=== PATIENT | female | born 1990 | race Caucasian/White ===

== ENCOUNTER 2021-11-21 14:09 | Emergency (ER) | payer OTHER, SELFPAY ==
--- NOTE | ~2021-11-21 | XR_ITS ---
EXAM: XR ankle RT min 3V DATE: 11/21/2021 14:32 HISTORY: HYPEREXTENSION INJURY,GEN LAT/ANT PAIN . COMPARISON: None available. FINDINGS: Normal mineralization. Tiny avulsion fracture fragment at the tip of the medial malleolus. No lytic or blastic lesion. Joint spaces are maintained. No erosion or periosteal change. Likely ank le joint effusion. Soft tissues within normal limits. IMPRESSION: Acute appearing medial malleolar avulsion fracture. Reviewed, dictated and finalized at location K.
[2021-11-21 14:19] VITALS: BP 116/82; PULSE 94; RESP 16; TEMP 37.1; O2SAT 99
--- NOTE | 2021-11-21 14:29 | ED.LOWEXIN ---
HPI - Extremity Injury (Lower) General Chief Complaint: Extremity Injury, Lower Stated Complaint: Right Ankel Injury Time Seen by Provider: 11/21/21 14:29 Source: patient Mode of arrival: ambulatory Limitations: no limitations History of Present Illness HPI Narrative: 31-year-old female presents with complaint of right ankle pain to lateral aspect. States that she was taking her dog out in the backyard and she tripped and fell landing on her right ankle. Arrived to urgent care ambulatory and then placed herself in a wheelchair. Range of motion decreased due to pain. Distal neurovascularly intact. All systems reviewed and negative except as noted above. Related Data Home Medications Medication Instructions Recorded Confirmed No Home Medications 11/21/21 11/21/21 Allergies Allergy/AdvReac Type Severity Reaction Status Date / Time cefaclor [From [facility]] Allergy Hives Verified 11/21/21 14:37 Penicillins Allergy Hives Verified 11/21/21 14:37 Sulfa (Sulfonamide Allergy Hives Verified 11/21/21 14:39 Antibiotics) tramadol AdvReac Other Verified 11/21/21 14:39 Review of Systems Review of Systems: CONSTITUTIONAL: Denies fever, chills, or sweats. EYES: Denies visual changes, redness, or discharge. ENT: Denies rhinorrhea, congestion, sore throat, or otalgia. CARDIOVASCULAR: Denies chest pain, palpitations, or edema. RESPIRATORY: Denies cough or dyspnea. GASTROINTESTINAL: Denies abdominal pain, nausea, vomiting, or diarrhea. GENITOURINARY: Denies dysuria or hematuria. SKIN: Denies rash or itching. MUSCULOSKELETAL: Denies back pain. Reports pain to lateral aspect right ankle. NEUROLOGIC: Denies headache, numbness, or weakness. PSYCHIATRIC: Denies anxiety or depression. All other systems reviewed are negative, except as documented in HPI. PMFSH Comments At time of signature, agree with nursing past medical, surgical, social and family history. There is no relevant family history pertinent to the presenting complaint. Exam Narrative: GENERAL: This is a well-nourished, well-developed patient, in no apparent distress. HEAD: normocephalic, atraumatic. EYES: PERRL. Sclera clear/white. Vision is grossly intact. EARS: External ears normal NOSE: External nose normal NECK: Neck supple, non-tender without lymphadenopathy, masses or thyromegaly. CARDIOVASCULAR: Regular rate and rhythm without murmurs, gallops, or rubs. RESPIRATORY: Clear to auscultation. Breath sounds equal bilaterally. No wheezes, rales, or rhonchi. SKIN: warm, Dry, intact with no suspicious lesions or rash, good texture and turgor. NEURO: awake, alert, and oriented to person, place and time. There were no obvious focal neurologic abnormalities. EXTREMITIES: Swelling and tenderness to lateral malleolus. Range of motion decreased due to pain. Distal neurovascularly intact. No instability noted. Course Course Level of Care: Express Care Visit Vital Signs Vital signs: Reviewed MDM - Extremity Injury (Lower) MDM Narrative Medical decision making narrative: Discussed x-ray results with patient. There is a avulsion fracture noted to the medial malleolus by radiologist. Patient does not have any tenderness or swelling to her medial malleolus. No fracture noted on malleolus. Will diagnose as sprain. Will refer to orthopedics for follow-up. Patient is aware of diagnosis, understands and agrees to treatment plan. Anticipatory guidance given. Patient agrees to follow-up as directed and is aware of reasons to seek care at the emergency department. Portions of this record may have been created with voice recognition software Differential Diagnosis Differential diagnosis: Likely ankle sprain and strain and ankle fracture Imaging Data My impression: no fx seen by this provider Radiologist's impression: EXAM:? XR ankle RT min 3V DATE: 11/21/2021 14:32 HISTORY: HYPEREXTENSION INJURY,GEN LAT/ANT PAIN . COMPARISON:? None available. FINDINGS
== END 2021-11-21 15:25 | disposition home or self-care (01) ==
PROVIDERS: Emergency Provider Nurse Practitioner Family
DX: S93.401A Sprain of unspecified ligament of right ankle, initial encounter (principal); W01.0XXA Fall on same level from slipping, tripping and stumbling without subsequent striking against object, initial encounter; E28.2 Polycystic ovarian syndrome
CPT/HCPCS: 29515; 73610; 99213; G0463